=== PATIENT | female | born 1945 | race Caucasian/White ===

== ENCOUNTER 2019-02-12 10:56 | Emergency (ER) | payer OTHER ==
[~2019-02-12] VITALS: Ht 162.6 cm; Wt 103.5 kg
[~2019-02-12 10:56] MED LIST: DIAZ10TA PO; LISI-420 PO; METO50TA20 PO; NITR0.4T51 SL; VIC PO; WARF5TAB1 PO
[2019-02-12 10:57] VITALS: BP 145/76
--- NOTE | 2019-02-12 11:06 | NUR ---
PATIENT AMBULATED TO BED 3
--- NOTE | 2019-02-12 11:10 | NUR ---
C/O LEFT KNEE THROBBING AND SHARP PAIN X 1 WEEK. DENIES TRAUMA. PT ALSO STATES SHE HAS INCONTINENCE, FREQUENCY, AND URGENCY OF URINATION. DENIES N/V/D; SKIN IS PINK/WARM/DRY, BUT WARMNESS ON PT'S LEFT KNEE ON PALPATION; AAOX4 WITH EVEN AND STEADY GAIT; PT DENIES ANY FEVER, CP, SOB, OR COUGH AT THIS TIME; PATIENT STATES PAIN OF 10/10 AT THIS TIME; VSS; PATIENT POSITIONED FOR COMFORT; HOB ELEVATED; BEDRAILS UP X1; BED DOWN. ER MD MADE AWARE OF PT STATUS.
[2019-02-12] MEDS ORDERED: TRIAMCINOLONE 10 MG/ML 5ML VIAL IA ONE (11:25)
[2019-02-12] MEDS ORDERED: BUPIVACAINE-MPF 0.25% 30 ML VIAL INJ ONE (11:25)
--- NOTE | 2019-02-12 11:36 | NUR ---
CT AT BEDSIDE
--- NOTE | 2019-02-12 12:15 | NUR ---
MD IS AT BEDSIDE AND ADMINISTERING KENALOG-10 AND SENSORCAINE.
--- NOTE | 2019-02-12 12:30 | NUR ---
NO ADVERSE DRUG EFFECTS NOTICED.
[2019-02-12 13:00] VITALS: BP 178/95
--- NOTE | 2019-02-12 13:01 | NUR ---
Patient discharged with v/s stable. Written and verbal after care instructions given and explained. Patient alert, oriented and verbalized understanding of instructions. Ambulatory with steady gait. All questions addressed prior to discharge. ID band removed. Patient advised to follow up with PMD. Rx of VESOcare given. Patient educated on indication of medication including possible reaction and side effects. Opportunity to ask questions provided and answered. Pt's BP 178/95, pt states she takes medication for HTN twice daily, her blood pressure is commonly high during noon time.
== END 2019-02-12 13:01 | disposition home or self-care (01) ==
LOC: MED 10:56
DX: M25.562 Pain in left knee (principal); M77.9 Enthesopathy, unspecified; I10 Essential (primary) hypertension; Z79.899 Other long term (current) drug therapy; Z79.01 Long term (current) use of anticoagulants
CPT/HCPCS: 73560; 96372; 99283; J3301; J3490; 81002

== ENCOUNTER 2019-06-06 11:23 | Emergency (ER) | payer OTHER ==
[~2019-06-06] VITALS: Ht 157.5 cm; Wt 108.9 kg
[2019-06-06 11:26] VITALS: BP 168/79
--- NOTE | 2019-06-06 11:37 | NUR ---
PATIENT AMBULATED TO BED 11 AT THIS TIME.
--- NOTE | 2019-06-06 11:39 | NUR ---
PATIENT PRESENTS TO ED WITH C/O LEFT LEG PAIN, SWELLING & DISCOLORATION X 1 MONTH. PATIENT STATES PAIN OF 10/10 AT THIS TIME; VSS; PATIENT POSITIONED FOR COMFORT; HOB ELEVATED; BEDRAILS UP X2; BED DOWN. ER MD MADE AWARE OF PT STATUS.
--- NOTE | 2019-06-06 12:00 | NUR ---
bedside ultrasound by
[2019-06-06] MEDS ORDERED: MORPHINE SULFATE 4 MG/ML SYR IM ONE (12:15)
[2019-06-06 12:44] VITALS: BP 154/79
--- NOTE | 2019-06-06 12:44 | NUR ---
Patient discharged with v/s stable. Written and verbal after care instructions given and explained. Patient verbalized understanding. Ambulatory with steady gait. All questions addressed prior to discharge. Advised to follow up with PMD.
== END 2019-06-06 12:44 | disposition home or self-care (01) ==
LOC: MED 11:23
DX: R60.0 Localized edema (principal); I10 Essential (primary) hypertension; Z90.49 Acquired absence of other specified parts of digestive tract; Z90.710 Acquired absence of both cervix and uterus; Z79.899 Other long term (current) drug therapy; Z79.01 Long term (current) use of anticoagulants
CPT/HCPCS: 96372; 99283; J2270

== ENCOUNTER 2019-06-13 09:07 | Emergency (ER) | payer OTHER ==
[~2019-06-13] VITALS: Ht 160 cm; Wt 106.6 kg
[2019-06-13 09:15] VITALS: BP 149/76
--- NOTE | 2019-06-13 09:20 | NUR ---
Patient ambulated to bed 02
--- NOTE | 2019-06-13 09:56 | NUR ---
PT. BIB SELF. pATIENT COMPLAINS OF DRY MOUTH FOR 4X DAYS, THERE ARE PAPULES ON TONGU, NOT SWOLLEN, OR PAINFUL. SHE STATES SHE HAS BEEN DRINKING 3 WATER BOTTLE A DAY AND URINATING ALL THE TIME, FREQUENCY ON URINATION AND POLYURIA ARE REPORTED, NO PAIN WHEN VOIDING. ABDOMEN IS MILDLY DISTENDED, PAIN IN ABDOMEN IS A 5/10. HX. CIRRHOSIS, HEPATITIS C RX. LISINOPRIL
--- NOTE | 2019-06-13 10:50 | NUR ---
PLACED IV 20G ON LEFT ANTICUBITAL SPACE AT 1030. [facility] AT 1039 AND WALKED THEM TO LAB
[2019-06-13 10:51] LABS: HEMOGLOBIN 14.2 g/dL (12.0-16.0); MEAN CORPUSCULAR HEMOGLOBIN 32 pg (27-31); MEAN CORPUSCULAR HGB CONC 33 g/dL (33-37); MEAN CORPUSCULAR VOLUME 96.6 fL (80-94); PLATELET COUNT (AUTO) 165 K/uL (140-450); RED BLOOD CELL COUNT(AUTO) 4.46 MIL/uL (4.20-5.40); RED CELL DISTRIBUTION WIDTH 14.3 % (11.6-13.7); WHITE BLOOD COUNT (AUTO) 6.9 K/uL (4.8-10.8)
[2019-06-13 11:20] LABS: ALBUMIN 3.5 g/dL (3.4-5.0); ANION GAP 11.3 (8-16); ASPARTATE AMINOTRANSFERASE 24 U/L (15-37); CARBON DIOXIDE 30.2 mmol/L (21-32); CHLORIDE 102 mmol/L (98-107); CREATININE 0.9 mg/dL (0.6-1.3); GLUCOSE 98 mg/dL (74-106); POTASSIUM 4.5 mmol/L (3.5-5.1); SODIUM SERUM 139 mmol/L (136-145); THYROID STIMULATING HORMONE 2.38 uIU/mL (0.34-3.74); TOTAL BILIRUBIN 0.6 mg/dL (0.0-1.0); UREA NITROGEN, BLOOD 13 mg/dL (7-18)
[2019-06-13 11:54] VITALS: BP 176/78
[2019-06-13 12:28] LABS: EOSINOPHILS % (MANUAL) 1 % (0-4); LYMPHOCYTES % (MANUAL) 19 % (20-46); MONOCYTES % (MANUAL) 10 % (5-12)
== END 2019-06-13 11:54 | disposition home or self-care (01) ==
LOC: MED 09:07
DX: E86.0 Dehydration (principal); I10 Essential (primary) hypertension; Z79.899 Other long term (current) drug therapy; Z79.01 Long term (current) use of anticoagulants; Z79.891 Long term (current) use of opiate analgesic
CPT/HCPCS: 36415; 80053; 82948; 83036; 84439; 84443; 85025; 99283

== ENCOUNTER 2019-12-08 01:31 | Emergency (ER) | payer OTHER ==
[~2019-12-08] VITALS: Ht 162.6 cm; Wt 109.8 kg
[2019-12-08 01:38] VITALS: BP 164/105
[2019-12-08 02:54] VITALS: BP 164/105
[2019-12-08] MEDS ORDERED: DIT5 PO (09:14)
[2019-12-08] MEDS ORDERED: SERT25TA PO (09:14)
== END 2019-12-08 02:53 | disposition home or self-care (01) ==
LOC: MED 01:31
DX: K13.79 Other lesions of oral mucosa (principal); I10 Essential (primary) hypertension; Z90.49 Acquired absence of other specified parts of digestive tract; Z90.710 Acquired absence of both cervix and uterus; Z79.899 Other long term (current) drug therapy
CPT/HCPCS: 99281

== ENCOUNTER 2019-12-08 04:02 | Inpatient (IN) | payer OTHER ==
[~2019-12-08] VITALS: Ht 162.6 cm; Wt 109.8 kg
[2019-12-08 04:07] VITALS: BP 159/98
[2019-12-08] MEDS ORDERED: PHYTONADIONE 10 MG/ML AMP SUBQ ONE (04:25)
[2019-12-08 04:33] LABS: BASOPHILS # (AUTO) 0.1 K/uL (0.00-0.22); BASOPHILS % (AUTO) 1.5 % (0.0-2.0); EOSINOPHILS # (AUTO) 0.2 K/uL (0-0.4); EOSINOPHILS % (AUTO) 2.5 % (0.0-4.0); HEMOGLOBIN 14.2 g/dL (12.0-16.0); LYMPHOCYTES # (AUTO) 1.7 K/uL (2.5-16.5); LYMPHOCYTES % (AUTO) 17.7 % (20.5-51.1); MEAN CORPUSCULAR HEMOGLOBIN 32 pg (27-31); MEAN CORPUSCULAR HGB CONC 34 g/dL (33-37); MEAN CORPUSCULAR VOLUME 94.9 fL (80-94); MONOCYTES # (AUTO) 0.8 K/uL (0.8-1.0); MONOCYTES % (AUTO) 8.1 % (1.7-9.3); NEUTROPHILS # (AUTO) 6.7 K/uL (1.8-7.7); NEUTROPHILS % (AUTO) 70.2 % (42.2-75.2); PLATELET COUNT (AUTO) 193 K/uL (140-450); RED BLOOD CELL COUNT(AUTO) 4.42 MIL/uL (4.20-5.40); RED CELL DISTRIBUTION WIDTH 14.4 % (11.6-13.7); WHITE BLOOD COUNT (AUTO) 9.5 K/uL (4.8-10.8)
--- NOTE | 2019-12-08 04:42 | NUR ---
74 Y/O F PRESENTS TO ED C/O BLEEDING OF ROOF OF THE MOUTH X2200. PT STATES THAT SHE HAS BEEN EXPERIENCING BLEEDING ON THE ROOF OF HER GUMS FOR THE PAST 3 DAYS AND SHE WAS ABLE TO STOP THE BLEEDING THEN, BUT NOW UNABLE TO STOP THE BLEEDING. PT ALSO STATES THE BLEEDING STARTED 3 DAYS AGO WHEN SHE TOOK OFF HER DENTURES. PT HAS STOPPED WEARING HER DENTURES 2 DAYS AGO. PT IS ACTIVELY BLEEDING ON THE ROOF OF THE MOUTH, PROVIDED 4X4 TO CONTROL BLEEDING. PT DENIES PAIN.AIRWAY INTACT, NO RESPIRATORY DISTRESS NOTED. PT HAS BEEN TO ER AT AN EARLIER TIME AND WAS DISCHARGED BY DR. MCGRAW. PT WAS CALLED BACK BY DR. MCGRAW TO COME BACK TO ER FOR FURTHER MONITORING. PMH: CIRRHOSIS, HTN ALLERGIES: BENADRYL
[2019-12-08 04:49] LABS: ALBUMIN 3.1 g/dL (3.4-5.0); ANION GAP 12.1 (8-16); ASPARTATE AMINOTRANSFERASE 25 U/L (15-37); CARBON DIOXIDE 28.1 mmol/L (21-32); CHLORIDE 104 mmol/L (98-107); CHOL/HDL RATIO 2.7 (1-4.5); CREATININE 1.1 mg/dL (0.6-1.3); GLUCOSE 115 mg/dL (74-106); POTASSIUM 4.2 mmol/L (3.5-5.1); SODIUM SERUM 140 mmol/L (136-145); TOTAL BILIRUBIN 0.4 mg/dL (0.0-1.0); UREA NITROGEN, BLOOD 24 mg/dL (7-18)
--- NOTE | 2019-12-08 04:49 | NUR ---
RAD AT BEDSIDE.
[2019-12-08 04:52] LABS: PROTHROMBIN TIME 10.6 secs (10.8-13.4)
[2019-12-08] MEDS ORDERED: DESMOPRESSIN 4 MCG/ML AMP IV ONE ×2 (05:45→06:25)
[2019-12-08] MEDS ORDERED: MORPHINE SULFATE 4 MG/ML SYR IVP ONE (06:40)
--- NOTE | 2019-12-08 06:50 | NUR ---
Patient will be admitted to care of DR. GERMAN. Admited to TELE. Will go to room 106A. Belongings list completed. Report to SKIP ARREOLA.
--- NOTE | 2019-12-08 06:50 | NUR ---
RECEIVED BEDSIDE REPORT FROM ER NURSE. PT CAME IN [facility] AND ABLE TO AMBULATE TO [facility] BED. BREATHING EVEN AND UNLABORED. BLEEDING IN GUM. IV SITE LAC, PATENT, INTACT AND ASYMPTOMATIC. SKIN INTACT, WARM AND DRY TO TOUCH. ORIENTED ROOM TO PT. ALL SAFETY MEASUREMENT ARE MET. PT DENIED PAIN. MRSA SWAB DONE, BED IN LOW POSITION, CALL LIGHT WITHIN REACH.
--- NOTE | 2019-12-08 06:56 | NUR ---
ENDORSED PT TO DAY SHIFT NURSECARMELA. PT IN STABLE CONDITION.
[2019-12-08 06:57] VITALS: BP 169/95
--- NOTE | 2019-12-08 07:00 | NUR ---
RECEIVED PT FROM WELL PULLER NURSE. PT WAS JUST ADMITTED TO THE UNIT FROM ED. SKIN IS INTACT WITH IV ASYMPTOMATIC AND PATENT, SALINE LOCKED. RESPIRATIONS ARE EVEN AND UNLABORED WITH NO SIGNS OF DISTRESS NOTED, PT ON RA. PT IS CURRENTLY ON TELE MONITOR. VITAL SIGNS ARE STABLE NO OTHER COMPLAINTS OF PAIN AT THIS TIME. WILL CONTINUE TO MONITOR, SAFETY MEASURES IN PLACE.
[2019-12-08] MEDS ORDERED: METOPROLOL SUCCINATE 50 MG TABER PO SCH (09:00)
[2019-12-08] MEDS ORDERED: LISINOPRIL 20 MG TAB PO SCH (09:00)
[2019-12-08] MEDS ORDERED: SERT25TA PO (09:14)
[2019-12-08] MEDS ORDERED: DIT5 PO (09:14)
[2019-12-08] MEDS ORDERED: MORPHINE SULFATE 2 MG/ML SYR IVP PRN (09:15)
[2019-12-08] MEDS ORDERED: HYDROcodone/APAP 5/325 MG 1 TAB TAB PO PRN (09:15)
--- NOTE | 2019-12-08 09:55 | NUR ---
MEDICATIONS WERE ADMINISTERED PER ORDER AND TOLERATED WELL. PT COMPLAINS OF ANXIETY BUT NO PAIN AT THE MOMENT. PT IS CURRENTLY SPEAKING WITH DAUGHTER. SAFETY MEASURES IN PLACE AND WILL CONTINUE TO MONITOR.
[2019-12-08] MEDS ORDERED: CRUSHER, PILL MC ONE (09:59)
[2019-12-08] MEDS ORDERED: SERTRALINE 50 MG TAB PO SCH (10:00)
[2019-12-08] MEDS ORDERED: OXYBUTYNIN 5 MG TAB PO SCH (10:00)
--- NOTE | 2019-12-08 11:09 | NUR ---
Conversion Worker Note: Basic Screen: Yes High Risk DC Screen Deep Water: JH BOCANEGRA Home Relationship: [id number] Pre-Admission Living Arrangements: Lives with Other Prior ADL Independent Current Home Health Name/Tel: N/A Current DME/02 Name/Tel: [facility], [facility] Current Hospice Name/Tel: N/A Current Dialysis Name/Tel: N/A Healthcare Decision Maker: Patient Advance Directive No Physician Orders for Life Sustaining Treatment Form No Patient/Family Have Educational Needs No Information Taught: Community Resources Person Taught: Patient Teaching Tools: Community Resources Verbal Factors Affecting Learning: None Participation Level: Active Evaluation: Verbalizes Understanding Needs Additional Education: No Discipline: Case Mgt/Social Svcs Tentative Discharge Plan/Destination: No Needs Identified Will require assistance post discharge: No Referred to Sales Service Representative: No Tentative Discharge Plan Summary: Patient is a 74 year old female admitetd for persistent oral bleeding. Patient has PMHX of hypertension. Patient was admitted from home where she rents a room to her kbzzwgeh-dl-jia/[facility] caregiver, Carolin Bocanegra. Patient states that Jh assists with cooking, cleaning, taking patient to doctor's appointments, and bathing. Patient reports no history of substance abuse or mental health. SW assessed for risk factors but none were apparent. Patient stated all of her needs are being met. Tentative discharge plan is for patient to return home. No further needs identified. Signature: ANNE Serna Date: Dec 08, 2019 Time: 11:08
--- NOTE | 2019-12-08 12:30 | NUR ---
PT IS CURRENTLY EATING LUNCH ON SIDE OF BED. PT DOES NOT COMPLAIN OF PAIN AT THIS TIME. PHYSICIAN WAS NOTIFIED OF PTS ANXIETY AND WANTING TO GO HOME. SPOKE WITH PT ABOUT CONTINUING PLAN OF AT HOSPITAL AND PT IS CONSIDERING.
--- NOTE | 2019-12-08 13:28 | NUR ---
PATIENT HAS BEEN SCREENED AND CATEGORIZED MODERATE NUTRITION RISK. PATIENT WILL BE SEEN WITHIN 3-5 DAYS OF ADMISSION. 12/10/19 12/12/[address]
--- NOTE | 2019-12-08 13:57 | NUR ---
DISCHARGE PLANNING: THIS IS A 74 Y/O FEMALE PATIENT FROM HOME, WHO CAME IN DUE TO PERSISTENT ORAL BLEEDING FROM THE ROOF OF THE MOUTH X 3 DAYS. PAST MEDICAL HISTORY INCLUDE CIRRHOSIS, HTN, OVERACTIVE BLADDER AND DEPRESSION. INITIAL DIAGNOSIS OF PERSISTENT ORAL BLEEDING AND CIRRHOSIS. CURRENT LABS WNL. CXR SHOWED MILD PULMONARY VASCULAR CONGESTION AND LARGE CARDIAC SILHOUETTE. NO CONSULTS AT THIS TIME. DC PLAN BACK TO HOME ONCE STABLE.
--- NOTE | 2019-12-08 15:30 | NUR ---
PT IS LEAVING UNIT AMA. PHYSICIAN CAME AND SPOKE TO PT ABOUT THE RISK OF LEAVING AGAINST MEDICAL ADVICE. PHYSICIAN AND PT SIGNED AMA REPORT. PT LEFT UNIT ON FOOT. ID BANDS WERE REMOVED, IV WAS REMOVED WITH LUMEN INTACT AND MINIMAL BLOOD LOSS.
[2019-12-09] MEDS ORDERED: SERTRALINE 50 MG TAB PO SCH (09:00)
[2019-12-09] MEDS ORDERED: OXYBUTYNIN 5 MG TAB PO SCH (09:00)
== END 2019-12-08 15:30 | disposition left against medical advice (07) | DRG 204 ==
LOC: MED 04:02 → MTU 06:00
PROVIDERS: ADMIT General Practice; ATTEND General Practice
DX: R04.89 Hemorrhage from other sites in respiratory passages (principal); E44.1 Mild protein-calorie malnutrition; Z88.8 Allergy status to other drugs, medicaments and biological substances; I10 Essential (primary) hypertension; F32.9 Major depressive disorder, single episode, unspecified; N32.81 Overactive bladder; K74.60 Unspecified cirrhosis of liver; Z90.49 Acquired absence of other specified parts of digestive tract; Z90.710 Acquired absence of both cervix and uterus
CPT/HCPCS: 36415; 71045; 80053; 83880; 84484; 85025; 85610; 85730; 93005; 96372; 96374; 96375; 99285; J2270; J2597; J3430; Q0092